=== PATIENT | male | born 1980 | race Two or more races ===

== ENCOUNTER 2022-08-12 23:08 | Emergency (ER) | payer SELFPAY ==
[~2022-08-12] VITALS: Ht 170.2 cm; Wt 120.0 kg
[2022-08-12 23:22] VITALS: BP 100/70
[2022-08-12] MEDS ORDERED: IBUP-2028 MT (23:49)
== END 2022-08-13 | disposition home or self-care (01) ==
LOC: ER 23:34
DX: K42.9 Umbilical hernia without obstruction or gangrene (principal)
CPT/HCPCS: 99283